=== PATIENT | male | born 1960 | race Caucasian/White ===

== ENCOUNTER 2024-03-18 06:34 | Day surgery (SDC) | payer OTHER ==
[2024-02-13 13:35] VITALS: BMI 26.4
[2024-03-18 08:58] VITALS: TEMP 98.1
[2024-03-18 09:31] VITALS: BP 125/72; PULSE 54; RESP 16
== END 2024-03-18 09:48 | disposition home or self-care (01) ==
LOC: JASU-ENDO 06:34
PROVIDERS: ATTEND Internal Medicine Gastroenterology
PROC: 0DJD8ZZ Inspection of Lower Intestinal Tract, Via Natural or Artificial Opening Endoscopic (ICD-10-PCS; principal; 2024-03-18 08:00)
DX: Z12.11 Encounter for screening for malignant neoplasm of colon (principal); K57.30 Diverticulosis of large intestine without perforation or abscess without bleeding; R19.5 Other fecal abnormalities; E11.9 Type 2 diabetes mellitus without complications; Z79.84 Long term (current) use of oral hypoglycemic drugs
CPT/HCPCS: 82962